=== PATIENT | male | born 1945 | race African-American/Black ===

== ENCOUNTER 2018-11-13 09:54 | Emergency (ER) | payer MEDICARE, MEDICAID ==
[~2018-11-13] VITALS: Ht 170.2 cm; Wt 66.0 kg
[2018-11-13] MEDS ORDERED: MORPHINE SULFATE 4 MG/ML CPJ (NOT FOR IM USE) IV ONE (10:30)
[2018-11-13] MEDS ORDERED: SODIUM CHLORIDE 0.9% 500 ML IV ONE (10:30)
[2018-11-13] MEDS ORDERED: PROPOFOL 200MG/20ML VIAL IV ONE ×2 (11:30→13:15)
[2018-11-13 16:20] VITALS: BP 144/71
== END 2018-11-13 16:36 | disposition home or self-care (01) ==
LOC: ER 09:54
DX: S73.005A Unspecified dislocation of left hip, initial encounter (principal); X58.XXXA Exposure to other specified factors, initial encounter; Y93.89 Activity, other specified; Y92.009 Unspecified place in unspecified non-institutional (private) residence as the place of occurrence of the external cause; Z88.6 Allergy status to analgesic agent; Z96.642 Presence of left artificial hip joint
CPT/HCPCS: 27250; 73501; 73502; 96374; 99152; 99285; J2270; J2704; J7040; L1830

== ENCOUNTER 2021-06-07 18:06 | Emergency (ER) | payer MEDICARE, MEDICAID ==
[~2021-06-07] VITALS: Ht 172.7 cm; Wt 72.0 kg
[2021-06-07] MEDS ORDERED: MORPHINE SULFATE 4 MG/ML CPJ (NOT FOR IM USE) IV STA (18:57)
[2021-06-07 19:37] LABS: BASOPHILS % 0.7 % (0.0-2.0); EOSINOPHILS % 3.9 % (0.0-5.0); HEMATOCRIT. 39.8 % (42.0-52.0); HEMOGLOBIN. 13.3 g/dL (14.0-18.0); LYMPHOCYTES % 25.5 % (20.0-50.0); MEAN CORPUSCULAR HEMOGLOBIN 29.1 pg (28.0-32.0); MEAN CORPUSCULAR VOLUME 87.6 fL (80.0-94.0); MEAN PLATELET VOLUME 7.5 fl (7.4-10.4); MONOCYTES % 8.4 % (2.0-8.0); NEUTROPHILS % 61.5 % (40.0-76.0); PLATELET 242 x1000/uL (130-400); RED BLOOD CELL COUNT 4.55 mill/uL (4.7-6.1)
[2021-06-07 19:41] LABS: CHLORIDE 103 mEq/L (98-107)
[2021-06-07] MEDS ORDERED: PROPOFOL 200MG/20ML VIAL IV ONE (20:30)
[2021-06-07] MEDS ORDERED: ONDANSETRON HCL 4MG/2ML INJ IV ONE (20:30)
[2021-06-07] MEDS ORDERED: ONDANSETRON HCL 4MG/2ML INJ IV PRN (20:30)
[2021-06-07] MEDS ORDERED: SODIUM CHLORIDE 0.9% 1,000 ML IV ONE (20:30)
[2021-06-07] MEDS ORDERED: MORPHINE SULFATE 4 MG/ML CPJ (NOT FOR IM USE) IV ONE (22:00)
[2021-06-08] MEDS ORDERED: MORPHINE SULFATE 4 MG/ML CPJ (NOT FOR IM USE) IV ONE ×2 (06:45→08:15)
[2021-06-08] MEDS ORDERED: ONDANSETRON HCL 4MG/2ML INJ IV ONE (08:15)
[2021-06-08] MEDS ORDERED: PROPOFOL 200MG/20ML VIAL IV ONE ×2 (08:15→12:15)
[2021-06-08] MEDS ORDERED: KETAMINE HCL 50 MG/ML 10ML IV ONE (12:15)
[2021-06-09] MEDS ORDERED: ONDANSETRON HCL 4MG/2ML INJ IV STA (01:12)
[2021-06-09] MEDS ORDERED: MORPHINE SULFATE 4 MG/ML CPJ (NOT FOR IM USE) IV STA (01:12)
[2021-06-09] MEDS ORDERED: MORPHINE SULFATE 4 MG/ML CPJ (NOT FOR IM USE) IV ONE (07:15)
[2021-06-09 07:22] VITALS: BP 137/77
== END 2021-06-09 07:52 | disposition short-term general hospital (02) ==
LOC: ER 18:06
DX: S73.005A Unspecified dislocation of left hip, initial encounter (principal); I49.9 Cardiac arrhythmia, unspecified; Z88.5 Allergy status to narcotic agent; Z20.822 Contact with and (suspected) exposure to COVID-19; X58.XXXA Exposure to other specified factors, initial encounter; Y93.89 Activity, other specified; Y92.89 Other specified places as the place of occurrence of the external cause; Y99.8 Other external cause status
CPT/HCPCS: 27250; 36415; 71045; 73502; 80053; 82962; 85025; 87426; 93005; 96361; 96374; 96375; 96376; 99152; 99285; C9803; J2270; J2405; J2704; J3490; J7030; U0003; U0005; A4315